=== PATIENT | male | born 1980 | race Caucasian/White ===

== ENCOUNTER 2016-11-25 12:41 | Emergency (ER) | payer MEDICAID ==
[2016-11-25 12:54] VITALS: RESP 16
[2016-11-25] MEDS ORDERED: Sodium Chloride 0.9% 500 ML IV STA (13:18)
--- NOTE | 2016-11-25 13:19 | ED PDOC ---
HPI: Chest Pain Time Seen by Provider: 11/25/16 12:58 Chief Complaint (Nursing): Chest Pain Chief Complaint (Provider): Chest pain History Per: Patient History/Exam Limitations: no limitations Onset/Duration Of Symptoms: Days (Today) Current Symptoms Are (Timing): Gone Now Additional Complaint(s): Pt. with chest pain left side. Started as a squeezing at work. Went away on its own. Wanted to get it checked out. No dyspnea, weakness, numbness, tingles , headaches, dizziness. Has epigastric pain, gone now. Was drinking last night. No drugs. No fever, calf pain, cough, runny nose, nasal congestion, neck pain, long distance travel, or hormone tx. No drugs or etoh. Past Medical History Vital Signs: Last Vital Signs Temp 98.4 F 11/25/16 12:51 Pulse 90 11/25/16 16:41 Resp 16 11/25/16 16:41 BP 150/98 H 11/25/16 16:41 Pulse Ox 99 11/25/16 16:41 - Medical History PMH: HTN (for a long time but not taking meds or getting tx for it) - Surgical History Surgical History: No Surg Hx - Family History Family History: States: Unknown Family Hx - Living Arrangements Living Arrangements: With Family - Social History Current smoker - smoking cessation education provided: No Alcohol: None Drugs: Denies - Allergies Allergies/Adverse Reactions: Allergies Allergy/AdvReac Type Severity Reaction Status Date / Time No Known Allergies Allergy Verified 11/25/16 12:51 Review of Systems ROS Statement: Except As Marked, All Systems Reviewed And Found Negative Cardiovascular: Positive for: Chest Pain Gastrointestinal: Positive for: Abdominal Pain Physical Exam - Reviewed Nursing Documentation Reviewed: Yes Vital Signs Reviewed: Yes - Physical Exam Appears: Positive for: Well, Non-toxic, No Acute Distress Head Exam: Positive for: ATRAUMATIC, NORMAL INSPECTION, NORMOCEPHALIC Skin: Positive for: Normal Color, Warm, DRY Eye Exam: Positive for: EOMI, Normal appearance, PERRL ENT: Positive for: Normal ENT Inspection Neck: Positive for: Normal, Painless ROM, Supple Cardiovascular/Chest: Positive for: Regular Rate, Rhythm, Chest Non Tender. Negative for: Edema Respiratory: Positive for: CNT, Normal Breath Sounds Gastrointestinal/Abdominal: Positive for: Bowel Sounds, Soft, Tenderness (mild epigastric). Negative for: Guarding Back: Positive for: Normal Inspection. Negative for: L CVA Tenderness, R CVA Tenderness Extremity: Positive for: Normal ROM. Negative for: Tenderness, Pedal Edema Neurologic/Psych: Positive for: Alert, Oriented - Laboratory Results Result Diagrams: 11/25/16 13:27 11/25/16 13:27 Interpretation Of Abn Labs: alcohol 15 - ECG ECG: Positive for: Interpreted By Me, Viewed By Me ECG Rhythm: Positive for: Sinus Tachycardia (mild) Interpretation Of Abn EKG: s1,q3,t3 O2 Sat by Pulse Oximetry: 98 Pulse Ox Interpretation: Normal - Radiology X-Ray: Read By Radiologist X-Ray Interpretation: No Acute Disease - CT Scan/US ct Other Rad Studies (CT/US): Read By Radiologist Other Rad Interpretation: no acute - Progress ED Course And Treament: 1730: Stable. AAOx3. Pain free. Tolerated PO. Fu with pcp. Disposition - Clinical Impression Clinical Impression: Chest pain, Hypertension - Patient ED Disposition Is Patient to be Admitted: No Counseled Patient/Family Regarding: Studies Performed, Diagnosis, Need For Followup - Disposition Referrals: [facility] [place] [Outside] - 11/26/16 [facility] [Outside] - 11/26/16 Disposition: Routine/Home Disposition Time: 17:00 Condition: STABLE Additional Instructions: Return if not better in 3 days. Instructions: Chest Pain (ED), Hypertension (ED) Forms: [facility] ([place]), [facility] ED School/Work Excuse
[2016-11-25 13:36] LABS: BASO # 0.1 K/uL (0.0-0.2); BASO % 1.5 % (0.0-2.0); EOS # 0.1 K/uL (0.0-0.7); EOS % 1.5 % (0.0-4.0); HEMATOCRIT 43.6 % (35.0-51.0); LYMPH # 2.2 K/uL (1.0-4.3); LYMPH % 35.4 % (20.0-40.0); MEAN CELL VOLUME 92.9 fl (80.0-94.0); MEAN CORPUSCULAR HEMOGLOBIN 31.9 pg (27.0-31.0); MEAN CORPUSCULAR HGB CONC 34.4 g/dL (33.0-37.0); MEAN PLATELET VOLUME 7.9 fl (7.2-11.7); MONO # 0.6 K/uL (0.0-0.8); MONO % 10.1 % (0.0-10.0); NEUT # 3.3 K/uL (1.8-7.0); NEUT % 51.5 % (50.0-75.0); NRBC % 0.1 % (0.0-0.0); RED CELL DISTRIBUTION WIDTH 13.3 % (11.5-14.5); WHITE BLOOD COUNT 6.3 K/uL (4.8-10.8)
[2016-11-25 13:44] LABS: ALB/GLOB RATIO 1.7 (1.0-2.1); ALCOHOL SERUM 15 mg/dl (0-10); ALKALINE PHOSPHATASE 45 U/L (38-126); ALT/SGPT 35 U/L (21-72); AST/SGOT 38 U/L (17-59); BILIRUBIN,TOTAL 0.8 mg/dl (0.2-1.3); BLOOD UREA NITROGEN 12 mg/dl (9-20); CALCIUM 9.5 mg/dL (8.4-10.2); CARBON DIOXIDE 25 mmol/L (22-30); CHLORIDE 104 mmol/L (98-107); GFR AFRICAN-AMERICAN > 60; GLUCOSE,RANDOM 94 mg/dL (75-110); SODIUM 143 mmol/l (132-148); TOTAL PROTEIN 7.8 G/DL (6.3-8.2)
[2016-11-25 13:50] LABS: PARTIAL THROMBOPLASTIN TIME 27.2 Seconds (25.6-37.1)
--- NOTE | 2016-11-25 14:28 | RAD ---
HISTORY: chest pain COMPARISON: No prior. FINDINGS: LUNGS: The lungs are well inflated and clear. PLEURA: No significant pleural effusion identified, no pneumothorax apparent. CARDIOVASCULAR: Normal. OSSEOUS STRUCTURES: No significant abnormalities. VISUALIZED UPPER ABDOMEN: Normal. OTHER FINDINGS: None. IMPRESSION: No active pulmonary disease.
[2016-11-25] MEDS ORDERED: Iodixanol 320 MG/ML 100 ML BOTTLE IV ONE (15:12)
[2016-11-25] MEDS ORDERED: Sodium Chloride 0.9% 50 ML IV ONE (15:12)
--- NOTE | 2016-11-25 16:18 | CT ---
PROCEDURE: CT Chest with contrast (Pulmonary Angiogram) HISTORY: chest pain COMPARISON: None available. TECHNIQUE: Axial computed tomography images were obtained of the chest in the pulmonary arterial phase of enhancement. Coronal and sagittal reformatted images were created and reviewed. Intravenous contrast dose: 90 mL Visipaque 320 Radiation dose: Total exam DLP = 399.83 mGy-cm. This CT exam was performed using one or more of the following dose reduction techniques: Automated exposure control, adjustment of the mA and/or kV according to patient size, and/or use of iterative reconstruction technique. FINDINGS: PULMONARY ARTERIES: There are no filling defects in the pulmonary arteries to suggest acute pulmonary embolism. AORTA: The aorta is normal in caliber. No thoracic aortic aneurysm. LUNGS: The lungs are well inflated and clear. No nodule, mass or pulmonary consolidation. PLEURAL SPACES: No effusion or pneumothorax. HEART: The heart is normal in size. No no pericardial effusion. LYMPH NODES: No pathologic lymphadenopathy. BONES, CHEST WALL: Unremarkable. No fracture or destructive lesion OTHER FINDINGS: Do there is minimal ill-defined soft tissue in the anterior and superior mediastinum most compatible with residual thymic tissue. IMPRESSION: No CT evidence for acute pulmonary embolism. Clear lungs.
[2016-11-25 16:39] LABS: LIPASE 133 U/L (23-300)
[2016-11-25 17:30] VITALS: O2SAT 98
[2016-11-25 17:48] VITALS: BP 154/91; PULSE 89; TEMP 98
--- NOTE | 2016-11-26 08:41 | CARD ---
APPROVED REPORT EKG Measurement Heart [id number] <Conclusion> Sinus tachycardia Possible Left atrial enlargement Borderline ECG
== END 2016-11-25 18:07 | disposition home or self-care (01) ==
LOC: H.ER 12:41
DX: R07.89 Other chest pain (principal); I10 Essential (primary) hypertension
CPT/HCPCS: 71010; 71275; 80053; 83690; 84484; 85025; 85610; 85730; 93005; 96374; 99283; G0480; J7040; Q9967